=== PATIENT | female | born 1950 | race Caucasian/White ===

== ENCOUNTER 2017-06-05 09:04 | Day surgery (SDC) | payer MEDICARE, OTHER ==
--- NOTE | 2017-06-05 07:39 | HP ---
DATE OF SURGERY: 06/05/2017 HISTORY OF PRESENT ILLNESS: The patient is a 67 year-old with last colonoscopy in 2013 and had tubular adenoma and is in need of follow up screening colonoscopy. She denies any pain. She denies any bloody stools. She had some small bowel movements. PAST MEDICAL HISTORY: She denies any chronic illnesses. PAST SURGICAL HISTORY: Back surgery in the past. Colonoscopy in the past. 0 MEDICATIONS: Includes multivitamins, Lyrica, potassium chloride, metaxalone, duloxetine, ropinirole, methylphenidate, vitamin B12, vitamin C. ALLERGIES: NKDA. FAMILY HISTORY: Sister had colon cancer. Hypertension. SOCIAL HISTORY: No smoking. Occasional alcohol use. REVIEW OF SYSTEMS: Twelve systems reviewed per admission assessment. No chest pain or palpitations other systems negative or noncontributory as above and per preadmission questionnaire. PHYSICAL EXAMINATION: GENERAL: No acute distress. HEENT: Sclerae nonicteric. NECK: No JVD. CHEST: Equal excursion, nonlabored breathing. CVS: Regular rate and rhythm. ABDOMEN: Soft. No peritoneal signs. EXTREMITIES: No significant edema. NEURO: Alert, oriented, moving extremities symmetrically. No gross motor deficits noted. IMPRESSION: History of polyps, need for follow up screening colonoscopy. I feel she is a candidate. Shown the risk sheet and explained the procedure in detail but not limited to bleeding or infection, small risk of bowel injury or perforation possibly requiring open procedure, small risk of missed or nondiagnosis or incomplete exam possibly requiring barium enema, other studies or procedures, general risk of anesthesia or sedation, risk of bowel prep, but not limited to. She understands and agrees to the planned procedure and will proceed with outpatient follow up screening colonoscopy under MAC anesthesia.
[~2017-06-05 09:04] MED LIST: Lactated Ringers 1,000 ML IV ONE; Lactated Ringers 1,000 ML IV SCH
[2017-06-05] MEDS ORDERED: DIPRIVAN 200 MG/20 ML IV ONE (09:05)
[2017-06-05] MEDS ORDERED: Robinul 0.4 MG/2 ML IV ONE (09:05)
[2017-06-05] MEDS ORDERED: Ketamine HCl 50 MG/ML IJ ONE (09:05)
[2017-06-05 11:52] VITALS: PULSE 75; O2SAT 100
[2017-06-05 11:58] VITALS: BP 167/91
--- NOTE | 2017-06-06 08:58 | OP ---
SURGERY DATE/TIME: 06/05/2017 1040 PREOPERATIVE DIAGNOSIS: History of polyps, need for screening colonoscopy. POSTOPERATIVE DIAGNOSES: 1) Somewhat poor prep limiting colon exam. 2) Tortuous colon. 3) Small ascending colon polyp. 4) Small internal and external hemorrhoids. PROCEDURES: Colonoscopy to cecum, cold biopsy with piecemeal polypectomy for small ascending colon polyp. SURGEON: Dr. Willis Cruz. ANESTHESIA: MAC. ESTIMATED BLOOD LOSS: Minimal. INDICATIONS: As noted above. Risks and benefits explained in detail but not limited to and consent obtained. DESCRIPTION OF PROCEDURE AND FINDINGS: The patient is taken to the operating room. MAC anesthesia introduced. After official time out and no disagreement with planned procedure. Digital rectal exam did not reveal any rectal masses. She did have some small internal and external hemorrhoids. Video colonoscope inserted and passed up the tortuous sigmoid, descending and transverse colon. With external pressure it took some time navigating through this very tortuous colon but with aid of MAC anesthesia the scope was able to be passed around the ascending colon to cecum. Appendiceal orifice and valve were visualized. Prep was poor with some liquidy semi-solid stool limiting the exam for small lesions. This was suction irrigated as well as possible but did limit the exam for small lesions. The scope slowly and carefully withdrawn. There was a small 2.5 mm polyp in the proximal ascending colon removed in piecemeal fashion with hot biopsy forceps and brief bursts of cautery. Good hemostasis noted. The scope was slowly and carefully withdrawn through the terminal ileum and showed some diverticulosis. There were no signs of any large polyps, masses or obstructing lesions but some small internal and external hemorrhoids in the rectum. Otherwise again no signs of any large polyps, masses or obstructing lesions. The scope is withdrawn. The patient tolerated the procedure well. There were no immediate complications. Should this polyp be benign I recommend follow up colonoscopy in three years given the polyp and the quality of the prep. I discussed the findings with the family out in the waiting room.
== END 2017-06-05 11:55 | disposition home or self-care (01) ==
LOC: SDC 09:04
PROVIDERS: ATTEND Surgery
PROC: 0DBK8ZX Excision of Ascending Colon, Via Natural or Artificial Opening Endoscopic, Diagnostic (ICD-10-PCS; principal; 2017-06-05)
DX: Z86.010 Personal history of colon polyps (principal); K63.5 Polyp of colon; K64.4 Residual hemorrhoidal skin tags; K64.8 Other hemorrhoids; Z12.11 Encounter for screening for malignant neoplasm of colon
CPT/HCPCS: 00812; 88305; J2704

== ENCOUNTER 2021-04-11 06:24 | Emergency (ER) | payer MEDICARE, OTHER ==
[2021-04-11] MEDS ORDERED: solu-MEDROL 125 MG, Sterile H2O 10 ml 2 ML IV ONE ×2 (07:31)
--- NOTE | 2021-04-11 07:31 | ERPHSYRPT ---
- History of Present Illness Time Seen by Provider: 04/11/21 07:10 Source: patient, EMS Exam Limitations: no limitations Patient Subjective Stated Complaint: pt states "I'm so weak." Triage Nursing Assessment: pt came into the er via ambulance; pt is axo x4; c/o weakness/ not feeling; pt states that she is positive for covid; pt states that she was positive on 04/06/21; pt states that she was unable to get out of bed this morning due to weakness; pt denies cough, SOB; pt denies vomiting; c/o N/D; clear lung sounds in all lobes; active bowel sounds in all quads; pt states last BM was today; pt states lost of taste and smell; pt states decreased appetite; hypertensive Physician History: This is a 71-year-old white female who has a history of peripheral neuropathy, COPD, fibromyalgia and has had a week of symptoms including cough, muscle aches and pains, low-grade fevers, and weakness. He took a home Covid test on the Monday prior to this evaluation. It was positive. Patient symptoms have not improved tremendously. Her overriding symptoms she states is weakness. She denies chest pain. She has had no nausea vomiting or diarrhea. Patient significant other also has similar symptoms and tested positive on the home Covid test as well. Timing/Duration: week(s) (1) Fever Severity: mild Fever Therapy EMPLOYMENT LEGAL ASSISTANT: none Associated Symptoms: cough, muscle aches, shortness of breath, weakness, No chest pain Allergies/Adverse Reactions: No Known Drug Allergies Allergy (Verified 04/11/21 06:33) Home Medications: Cyanocobalamin/Folic Acid [Vitamin Y58-Kfnfp Acid Tablet] 2,500 mcg PO DAILY 03/18/14 [History] Metaxalone 1 tab PO BID 03/18/14 [History] Multivitamin [Multi-Vitamin Daily] 1 each PO DAILY 03/18/14 [History] Potassium Chloride 10 Meq Tab* [Klor Con 10 MEQ] 1 tab PO DAILY 03/18/14 [History] Ascorbic Acid 500 mg [Vitamin C 500 MG] 1,000 mg PO DAILY 09/23/16 [History] Duloxetine HCl 30 mg [Cymbalta 30 MG Capsule] 60 mg PO DAILY 09/23/16 [History] Pregabalin [Lyrica] 75 mg PO BID 09/23/16 [History] Ropinirole HCl 1 mg PO HS 09/23/16 [History] Amphet Asp/Amphet/D-Amphet [Dextroamp-Amphet ER 30 mg Cap] 30 mg PO DAILY [History] Alendronate Sodium 70 mg [Fosamax 70 MG] 70 mg PO 04/11/21 [History] Celecoxib [Celebrex] 50 mg PO BID 04/11/21 [History] Docusate Sodium [Stool Softener] 250 mg PO UD 04/11/21 [History] Hx Tetanus, Diphtheria Vaccination/Date Given: No Hx Influenza Vaccination/Date Given: No Hx Pneumococcal Vaccination/Date Given: No Travel Risk - International Travel Have you traveled outside of the country in past 3 weeks: No - Coronavirus Screening Are you exhibiting any of the following symptoms?: Yes Symptoms: Vomiting/Diarrhea, Loss of Taste or Smell, Headaches/Body Aches/Fatigu e Close contact with a COVID-19 positive Pt in past 14-21 Days: Yes - Vaccine Status Have you recieved a Covid-19 vaccination: No - Review of Systems Constitutional: Fever, Weakness Eyes: No Symptoms Ears, Nose, & Throat: No Symptoms Respiratory: Cough, Dyspnea Cardiac: No Symptoms Abdominal/Gastrointestinal: No Symptoms Genitourinary Symptoms: No Symptoms Musculoskeletal: No Symptoms Skin: No Symptoms Neurological: No Symptoms Psychological: No Symptoms Endocrine: No Symptoms Hematologic/Lymphatic: No Symptoms Immunological/Allergic: No Symptoms All Other Systems: Reviewed and Negative - Past Medical History Pertinent Past Medical History: Yes Neurological History: Peripheral Neuropathy ENT History: No Pertinent History Cardiac History: No Pertinent History Respiratory History: COPD Endocrine Medical History: Hypothyroidism Musculoskeletal History: Arthritis, Fibromyalgia, Osteoarthritis GI Medical History: No Pertinent History History: No Pertinent History Psycho-Social History: No Pertinent History Female Reproductive Disorders: No Pertinent History Other Medical History: copd does not need treatment at this time, restless legs, pt states no thyroid problems - Past Surgical History Past Surgical History: Yes Neuro Surgical History: No Pertinent History Cardiac: No Pertinent History Respiratory: No Pertinent History Gastrointestinal: No Pertinent History Genitourinary: No Pertinent History Musculoskeletal: Other Female Surgical History: No Pertinent History Other Surgical History: back surgery 10/26/16 on L4 & L5, colonoscopy 2013 - Social History Smoking Status: Never smoker Exposure to second hand smoke: No Drug Use: none Patient Lives Alone: No - Female History Hx Now: No - Nursing Vital Signs Nursing Vital Signs: Initial Vital Signs Temperature 98.3 F 04/11/21 06:33 Pulse Rate 76 04/11/21 06:33 Respiratory Rate 14 04/11/21 06:33 Blood Pressure 166/86 04/11/21 06:33 O2 Sat by Pulse Oximetry 98 04/11/21 06:33 Pain Scale Pain Intensity 0 - Physical Exam General Appearance: mild distress, alert, anxiety Eye Exam: PERRL/EOMI, eyes nml inspection ENT Exam: normal ENT inspection Neck Exam: normal inspection, non-tender, supple, full range of motion, trachea midline Respiratory Exam: normal breath sounds, chest non-tender, lungs clear, no respiratory distress, no accessory muscle use Cardiovascular/Chest Exam: normal heart sounds, regular rate/rhythm, normal peripheral pulses Gastrointestinal/Abdominal Exam: soft, non tender Pelvic Exam: not done Rectal Exam: not done Extremity Exam: non-tender, normal range of motion, normal inspection Neurologic Exam: alert, oriented x 3, cooperative, electrotype caster II-XII nml as tested, normal mood/affect, nml cerebellar function, nml station & gait, sensation nml Skin Exam: normal color, warm, dry Lymphatic: No adenopathy SpO2 Interpretation: normal SpO2: 98 O2 Delivery: Room Air - Course Nursing assessment & vital signs reviewed: Yes EKG Interpreted by Me: RATE (73), Sinus Rhythm, NORMAL AXIS, NORMAL INTERVALS, NORMAL QRS, NORMAL ST-T, Other (No acute ischemic changes on today's EKG. There are no changes on today's EKG when compared to EKG dated 03/08/2016) Ordered Tests: Active Orders 24 hr Category Date Time Status Information Systems Coordinator STAT Care 04/11/21 07:33 Active EKG-ER Only STAT Care 04/11/21 07:31 Active IV Insertion STAT Care 04/11/21 07:31 Active Isolation, Initiate & Maintain STAT Care 04/11/21 07:32 Active CHEST 1 VIEW (PORTABLE) Stat Exams 04/11/21 07:32 Completed BLOOD CULTURE Stat Lab 04/11/21 08:00 Ordered CBC W DIFF Stat Lab 04/11/21 07:31 Completed CMP Stat Lab 04/11/21 07:30 Completed CULTURE,URINE Stat Lab 04/11/21 09:16 Received D-DIMER QUANTITATIVE Stat Lab 04/11/21 07:30 Completed Ferritin Stat Lab 04/11/21 07:30 Completed INFLUENZA A+B ERINN Stat Lab 04/11/21 08:00 Completed LDH-LACTATE DEHYDROGENASE Stat Lab 04/11/21 07:30 Completed Lactic Acid Stat Lab 04/11/21 07:31 Completed NT PRO BNP Stat Lab 04/11/21 07:30 Completed TROPONIN Q3H Lab 04/11/21 07:30 Completed TROPONIN Q3H Lab 04/11/21 10:45 Ordered TROPONIN Q3H Lab 04/11/21 13:45 Ordered TROPONIN Q3H Lab 04/11/21 16:45 Ordered TROPONIN Q3H Lab 04/11/21 19:45 Ordered UA W/RFX UR CULTURE Stat Lab 04/11/21 09:16 Completed Medication Summary Generic Name Dose Route Start Last Admin Trade Name Freq PRN Reason Stop Dose Admin Sodium Chloride 1,000 mls @ 100 mls/hr 04/11/21 07:45 04/11/21 07:38 Sodium Chloride 0.9% 1000 Ml IV 05/11/21 07:44 100 mls/hr .Q10H CARLEY Administration Ceftriaxone Sodium/Dextrose 1 g in 50 mls @ 100 mls/hr 04/11/21 09:49 04/11/21 09:56 Rocephin 1 Gm-D5w 50 Ml Bag IV 04/11/21 10:18 100 mls/hr STAT STA 100 mls/hr Administration Discontinued Medications Generic Name Dose Route Start Last Admin Trade Name Freq PRN Reason Stop Dose Admin Hydrocodone Bitart/Acetaminophen 10 ml 04/11/21 07:34 04/11/21 07:39 Hydrocodone/Acetaminophen 5 Ml Udcup PO 04/11/21 07:35 10 ml STAT STA Administration Hydrocodone Bitart/Acetaminophen Confirm 04/11/21 07:37 Hydrocodone/Acetaminophen 5 Ml Udcup Administered 04/11/21 07:38 Dose 10 ml .ROUTE .STK-MED ONE Methylprednisolone Sodium 0 mg 04/11/21 07:31 04/11/21 07:38 Succinate 125 mg/ Sterile IV 04/11/21 07:32 125 mg Water 2 ml STAT ONE Administration Ceftriaxone Sodium/Dextrose Confirm 04/11/21 09:52 Rocephin 1 Gm-D5w 50 Ml Bag Administered 04/11/21 09:53 Dose 1 g in 50 mls @ ud IV .STK-MED ONE Methylprednisolone Sodium Succinate Confirm 04/11/21 07:37 Methylprednis Sod Succ 125 Mg/2 Ml Vial Administered 04/11/21 07:38 Dose 125 mg .ROUTE .STK-MED ONE Sterile Water Confirm 04/11/21 07:37 Water For Injection,Sterile 10 Ml Vial Administered 04/11/21 07:38 Dose 10 ml IJ .STK-MED ONE Lab/Rad Data: Laboratory Result Diagrams 04/11/21 07:31 04/11/21 07:30 Laboratory Results 04/11/21 04/11/21 04/11/21 Range/Units 09:16 08:00 08:00 WBC (4.0-10.5) K/mm3 RBC (4.1-5.4) M/mm3 Hgb (12.0-16.0) gm/dl Hct (35-47) % MCV (78-100) fl MCH (26-32) pg MCHC (32-36) g/dl RDW (11.5-14.0) % Plt Count (150-450) K/mm3 MPV (7.5-11.0) fl Gran % (36.0-66.0) % Eos # (Auto) (0-0.5) Absolute Lymphs (auto) (1.0-4.6) Absolute Monos (auto) (0.0-1.3) Lymphocytes % (24.0-44.0) % Monocytes % (0.0-12.0) % Eosinophils % (0.00-5.0) % Basophils % (0.0-0.4) % Absolute Granulocytes (1.4-6.9) Basophils # (0-0.4) D-Dimer (215-500) ng/mL Sodium (137-145) mmol/L Potassium (3.5-5.1) mmol/L Chloride (98-107) mmol/L Carbon Dioxide (22-30) mmol/L Anion Gap (5-15) MEQ/L BUN (7-17) mg/dL Creatinine (0.52-1.04) mg/dL Estimated GFR ML/MIN Glucose (74-106) mg/dL Lactic Acid (0.4-2.0) Calcium (8.4-10.2) mg/dL Ferritin (11.1-264) ng/mL Total Bilirubin (0.2-1.3) mg/dL AST (14-36) U/L ALT (0-35) U/L Alkaline Phosphatase (38-126) U/L Lactate Dehydrogenase (120-246) U/L Troponin I (0.000-0.034) ng/mL NT-Pro-B Natriuret Pep (0-900) pg/mL Serum Total Protein (6.3-8.2) g/dL Albumin (3.5-5.0) g/dL Urine Color KANE (YELLOW) Urine Appearance SLIGHTLY CLOUDY (CLEAR) Urine pH 6.0 (5-6) Ur Specific [place] 1.018 (1.005-1.025) Urine Protein 30 (Negative) Urine Ketones MODERATE (NEGATIVE) Urine Blood NEGATIVE (0-5) Phong/ul Urine Nitrite POSITIVE (NEGATIVE) Urine Bilirubin NEGATIVE (NEGATIVE) Urine Urobilinogen NEGATIVE (0-1) mg/dL Ur Leukocyte Esterase NEGATIVE (NEGATIVE) Urine WBC (Auto) 16-25 (0-5) /HPF Urine RBC (Auto) 3-5 (0-2) /HPF U Epithel Cells (Auto) RARE (FEW) /HPF Urine Bacteria (Auto) MANY (NEGATIVE) /HPF Urine Mucus (Auto) SLIGHT (NEGATIVE) /HPF Urine Culture Reflexed YES (NO) Urine Glucose NEGATIVE (NEGATIVE) mg/dL Influenza Type A Ag NEGATIVE (NEGATIVE) Influenza Type B Ag NEGATIVE (NEGATIVE) Group A Strep Antibody NOT DETECTED (NEGATIVE) Slides for Path Review 04/11/21 04/11/21 04/11/21 Range/Units 07:31 07:31 07:30 WBC 2.2 L (4.0-10.5) K/mm3 RBC 5.44 H (4.1-5.4) M/mm3 Hgb 14.9 (12.0-16.0) gm/dl Hct 46.3 (35-47) % MCV 85.1 (78-100) fl MCH 27.4 (26-32) pg MCHC 32.2 (32-36) g/dl RDW 13.7 (11.5-14.0) % Plt Count 124 L (150-450) K/mm3 MPV 11.6 H (7.5-11.0) fl Gran % 44.9 (36.0-66.0) % Eos # (Auto) 0 (0-0.5) Absolute Lymphs (auto) 0.75 L (1.0-4.6) Absolute Monos (auto) 0.43 (0.0-1.3) Lymphocytes % 34.7 (24.0-44.0) % Monocytes % 19.9 H (0.0-12.0) % Eosinophils % 0.0 (0.00-5.0) % Basophils % 0.5 (0.0-0.4) % Absolute Granulocytes 0.97 L (1.4-6.9) Basophils # 0.01 (0-0.4) D-Dimer (215-500) ng/mL Sodium (137-145) mmol/L Potassium (3.5-5.1) mmol/L Chloride (98-107) mmol/L Carbon Dioxide (22-30) mmol/L Anion Gap (5-15) MEQ/L BUN (7-17) mg/dL Creatinine (0.52-1.04) mg/dL Estimated GFR ML/MIN Glucose (74-106) mg/dL Lactic Acid 1.0 (0.4-2.0) Calcium (8.4-10.2) mg/dL Ferritin 424 H (11.1-264) ng/mL Total Bilirubin (0.2-1.3) mg/dL AST (14-36) U/L ALT (0-35) U/L Alkaline Phosphatase (38-126) U/L Lactate Dehydrogenase (120-246) U/L Troponin I (0.000-0.034) ng/mL NT-Pro-B Natriuret Pep (0-900) pg/mL Serum Total Protein (6.3-8.2) g/dL Albumin (3.5-5.0) g/dL Urine Color (YELLOW) Urine Appearance (CLEAR) Urine pH (5-6) Ur Specific [place] (1.005-1.025) Urine Protein (Negative) Urine Ketones (NEGATIVE) Urine Blood (0-5) Phong/ul Urine Nitrite (NEGATIVE) Urine Bilirubin (NEGATIVE) Urine Urobilinogen (0-1) mg/dL Ur Leukocyte Esterase (NEGATIVE) Urine WBC (Auto) (0-5) /HPF Urine RBC (Auto) (0-2) /HPF U Epithel Cells (Auto) (FEW) /HPF Urine Bacteria (Auto) (NEGATIVE) /HPF Urine Mucus (Auto) (NEGATIVE) /HPF Urine Culture Reflexed (NO) Urine Glucose (NEGATIVE) mg/dL Influenza Type A Ag (NEGATIVE) Influenza Type B Ag (NEGATIVE) Group A Strep Antibody (NEGATIVE) Slides for Path Review YES 04/11/21 04/11/21 04/11/21 Range/Units 07:30 07:30 07:30 WBC (4.0-10.5) K/mm3 RBC (4.1-5.4) M/mm3 Hgb (12.0-16.0) gm/dl Hct (35-47) % MCV (78-100) fl MCH (26-32) pg MCHC (32-36) g/dl RDW (11.5-14.0) % Plt Count (150-450) K/mm3 MPV (7.5-11.0) fl Gran % (36.0-66.0) % Eos # (Auto) (0-0.5) Absolute Lymphs (auto) (1.0-4.6) Absolute Monos (auto) (0.0-1.3) Lymphocytes % (24.0-44.0) % Monocytes % (0.0-12.0) % Eosinophils % (0.00-5.0) % Basophils % (0.0-0.4) % Absolute Granulocytes (1.4-6.9) Basophils # (0-0.4) D-Dimer 527 H* (215-500) ng/mL Sodium 139 (137-145) mmol/L Potassium 3.8 (3.5-5.1) mmol/L Chloride 106 (98-107) mmol/L Carbon Dioxide 23 (22-30) mmol/L Anion Gap 13.6 (5-15) MEQ/L BUN 11 (7-17) mg/dL Creatinine 0.76 (0.52-1.04) mg/dL Estimated GFR > 60.0 ML/MIN Glucose 95 (74-106) mg/dL Lactic Acid (0.4-2.0) Calcium 8.5 (8.4-10.2) mg/dL Ferritin (11.1-264) ng/mL Total Bilirubin 0.40 (0.2-1.3) mg/dL AST 51 H (14-36) U/L ALT 49 H (0-35) U/L Alkaline Phosphatase 64 (38-126) U/L Lactate Dehydrogenase 225 (120-246) U/L Troponin I < 0.012 (0.000-0.034) ng/mL NT-Pro-B Natriuret Pep 53.5 (0-900) pg/mL Serum Total Protein 6.2 L (6.3-8.2) g/dL Albumin 3.8 (3.5-5.0) g/dL Urine Color (YELLOW) Urine Appearance (CLEAR) Urine pH (5-6) Ur Specific [place] (1.005-1.025) Urine Protein (Negative) Urine Ketones (NEGATIVE) Urine Blood (0-5) Phong/ul Urine Nitrite (NEGATIVE) Urine Bilirubin (NEGATIVE) Urine Urobilinogen (0-1) mg/dL Ur Leukocyte Esterase (NEGATIVE) Urine WBC (Auto) (0-5) /HPF Urine RBC (Auto) (0-2) /HPF U Epithel Cells (Auto) (FEW) /HPF Urine Bacteria (Auto) (NEGATIVE) /HPF Urine Mucus (Auto) (NEGATIVE) /HPF Urine Culture Reflexed (NO) Urine Glucose (NEGATIVE) mg/dL Influenza Type A Ag (NEGATIVE) Influenza Type B Ag (NEGATIVE) Group A Strep Antibody (NEGATIVE) Slides for Path Review - Progress Progress: improved, re-examined Progress Note: 04/11/21 10:03 Chest x-ray shows bilateral mid lower lung field groundglass opacities consis tent with COVID-19 infection. Clinically, the patient states she is feeling much better. Counseled pt/family regarding: lab results, diagnosis, need for follow-up, rad results - Departure Departure Disposition: Home Clinical Impression: UTI (urinary tract infection), Viral illness Condition: Stable Critical Care Time: No Referrals: ANDIE MASTERS MD [Primary Care Provider] - Follow up/PCP as directed Additional Instructions: Drink plenty of fluids. Take your medications as prescribed. Get plenty of rest. Return to the emergency department if symptoms worsen. Prescriptions: Hydrocodone/Acetaminophen [Hydrocodone-Acetamn 7.5-325/15] 10 ml PO Q8H PRN PRN #120 ml MDD 30 ml PRN Reason: Cough Ciprofloxacin [Cipro 500 MG] 500 mg PO BID #14 tablet Prednisone 10 mg [Deltasone 10 mg] 10 mg PO TID #12 tablet
[2021-04-11] MEDS ORDERED: HYDROCODONE-ACETAMIN 2.5-108/5 ML SOLUTION PO STA (07:34)
[2021-04-11] MEDS ORDERED: Sodium Chloride 0.9% 1000 ML 1,000 ML ONE (07:37)
[2021-04-11] MEDS ORDERED: solu-MEDROL ONE (07:37)
[2021-04-11] MEDS ORDERED: HYDROCODONE-ACETAMIN 2.5-108/5 ML SOLUTION ONE (07:37)
[2021-04-11] MEDS ORDERED: Sterile H2O 10 ml IJ ONE (07:37)
[2021-04-11] MEDS ORDERED: Sodium Chloride 0.9% 1000 ML 1,000 ML IV SCH (07:45)
[2021-04-11 08:06] LABS: Absolute Neutrophil Ct (ANC) 0.97 (1.4-6.9); BASOPHIL % 0.5 % (0.0-0.4); Basophil (Absolute #) 0.01 (0-0.4); Eosinophil (Absolute #) 0 (0-0.5); Hematocrit 46.3 % (35-47); Hemoglobin 14.9 gm/dl (12.0-16.0); Lymphocyte (Absolute #) 0.75 (1.0-4.6); Lymphocytes % 34.7 % (24.0-44.0); Mean Cell Volume 85.1 fl (78-100); Mean Corpuscular Hemoglobin 27.4 pg (26-32); Mean Corpuscular Hgb Concent. 32.2 g/dl (32-36); Mean Platelet Volume 11.6 fl (7.5-11.0); Monocyte (Absolute #) 0.43 (0.0-1.3); Monocytes % 19.9 % (0.0-12.0); Neutrophil % 44.9 % (36.0-66.0); Platelet Count 124 K/mm3 (150-450); Red Blood Count 5.44 M/mm3 (4.1-5.4); Red Cell Distribution Width 13.7 % (11.5-14.0); White Blood Count 2.2 K/mm3 (4.0-10.5)
--- NOTE | 2021-04-11 08:14 | XRAY ---
Indication: Fever and cough. Suspect Covid 19. Comparison: None Portable apical lordotic chest hyperinflated with subtle bilateral mid to lower lung patchy interstitial alveolar opacities. Heart not enlarged with incidental tortuous descending aorta. Bony thorax intact with osteopenia and mild degenerative changes.
[2021-04-11 08:29] LABS: ALBUMIN 3.8 g/dL (3.5-5.0); ALKALINE PHOSPHATASE 64 U/L (38-126); ANION GAP 13.6 MEQ/L (5-15); BLOOD UREA NITROGEN 11 mg/dL (7-17); CHLORIDE 106 mmol/L (98-107); Calcium 8.5 mg/dL (8.4-10.2); Carbon Dioxide 23 mmol/L (22-30); Creatinine 1 0.76 mg/dL (0.52-1.04); EST GLOMERULAR FILTRATION RATE > 60.0 ML/MIN; Glucose 95 mg/dL (74-106); LDH-LACTATE DEHYDROGENASE 225 U/L (120-246); NT PRO BNP 53.5 pg/mL (0-900); Potassium 3.8 mmol/L (3.5-5.1); SGOT/AST 51 U/L (14-36); SGPT/ALT 49 U/L (0-35); SODIUM 139 mmol/L (137-145); Total Protein 6.2 g/dL (6.3-8.2)
[2021-04-11 08:44] LABS: INFLUENZA A NEGATIVE (NEGATIVE); INFLUENZA B NEGATIVE (NEGATIVE)
[2021-04-11 09:09] LABS: Slide Review 1 YES
[2021-04-11 09:39] LABS: Appearance SLIGHTLY CLOUDY (CLEAR); Bacteria MANY /HPF (NEGATIVE); Bilirubin NEGATIVE (NEGATIVE); Blood NEGATIVE Ery/ul (0-5); Glucose NEGATIVE (NEGATIVE); Ketones MODERATE (NEGATIVE); Leukocyte Esterase NEGATIVE (NEGATIVE); Mucus SLIGHT /HPF (NEGATIVE); Nitrite POSITIVE (NEGATIVE); Protein,Urine Dip 30 (Negative); Specific Gravity 1.018 (1.005-1.025); Urobilinogen NEGATIVE mg/dL (0-1)
[2021-04-11 09:40] LABS: Epithelial Cells RARE /HPF (FEW)
[2021-04-11] MEDS ORDERED: ROCEPHIN 1 Gm-D5w 50 ml Bag** 1 G/50 ML IVPB IV STA (09:49)
[2021-04-11] MEDS ORDERED: ROCEPHIN 1 Gm-D5w 50 ml Bag** 1 G/50 ML IVPB IV ONE (09:52)
[2021-04-11 10:38] VITALS: BP 137/74; PULSE 76; O2SAT 95
== END 2021-04-11 11:10 | disposition home or self-care (01) ==
LOC: ED 06:24
DX: N39.0 Urinary tract infection, site not specified (principal); B34.9 Viral infection, unspecified; M79.10 Myalgia, unspecified site; R06.02 Shortness of breath; R53.1 Weakness; R50.9 Fever, unspecified; J44.9 Chronic obstructive pulmonary disease, unspecified; Z79.891 Long term (current) use of opiate analgesic
CPT/HCPCS: 36415; 71045; 80053; 81001; 82728; 83605; 83615; 83880; 84484; 85025; 85379; 86308; 87040; 87086; 87400; 87651; 93005; 93041; 96360; 96365; 96374; 99285; U0003; 87077; 87186; J0696; J2930; A9270-GY

== ENCOUNTER 2022-08-30 16:16 | Emergency (ER) | payer MEDICARE, OTHER ==
--- NOTE | 2022-08-30 17:13 | XRAY ---
Indication: Pain following fall. Comparison: May 22, 2018 3 portable views left knee demonstrates new mildly displaced comminuted patella fracture with hemarthrosis. Stable minimal medial joint space narrowing and minimal scattered vascular calcifications.
--- NOTE | 2022-08-30 17:23 | ERPHSYRPT ---
- History of Present Illness Source: patient, other (Daughter) Exam Limitations: no limitations Patient Subjective Stated Complaint: PT states "I was at the dr office with my and I fell and my knee popped a bunch." Triage Nursing Assessment: Pt presented alert and oriented X 3, skin pwd. PT ambulates with assistance of 1. PT left knee slightly deformed, swollen and tender. CSM X 4 Physician History: 72 yo WF fell while going into a doctor's office in [place]. She was taking her . Pt complains of L knee pain. Pain is moderate to severe and worse w weight bearing. She denies head injury/LOC/C,T, or L-spine pain/chest pain /abdominal pain/UE pain/Hip pain. Method of Injury: fell Occurred: other (14:00 today) Quality: constant Severity of Pain-Max: severe Severity of Pain-Current: moderate Lower Extremities Pain: knee: left Modifying Factors: Improves With: movement Associated Symptoms: unable to bear weight Allergies/Adverse Reactions: No Known Drug Allergies Allergy (Verified 04/11/21 06:33) Home Medications: Cyanocobalamin/Folic Acid [Vitamin X88-Xlmws Acid Tablet] 2,500 mcg PO DAILY 03/18/14 [History] Metaxalone 1 tab PO BID 03/18/14 [History] Multivitamin [Multi-Vitamin Daily] 1 each PO DAILY 03/18/14 [History] Potassium Chloride Tab* [Klor Con] 1 tab PO DAILY 03/18/14 [History] Ascorbic Acid 500 mg [Vitamin C 500 MG] 1,000 mg PO DAILY 09/23/16 [History] Duloxetine HCl 30 mg [Cymbalta 30 MG Capsule] 60 mg PO DAILY 09/23/16 [History] Pregabalin [Lyrica] 75 mg PO BID 09/23/16 [History] Ropinirole HCl 1 mg PO HS 09/23/16 [History] Dextroamphetamine/Amphetamine [Dextroamp-Amphet ER 30 mg Cap] 30 mg PO DAILY 05/16/19 [History] Celecoxib [Celebrex] 50 mg PO BID 04/11/21 [History] Docusate Sodium [Stool Softener] 250 mg PO UD 04/11/21 [History] Hx Tetanus, Diphtheria Vaccination/Date Given: No Hx Influenza Vaccination/Date Given: No Hx Pneumococcal Vaccination/Date Given: No Travel Risk - International Travel Have you traveled outside of the country in past 3 weeks: No - Coronavirus Screening Are you exhibiting any of the following symptoms?: No Close contact with a COVID-19 positive Pt in past 14-21 Days: No - Vaccine Status Have you recieved a Covid-19 vaccination: No - Review of Systems Constitutional: No Symptoms Eyes: No Symptoms Ears, Nose, & Throat: No Symptoms Respiratory: No Symptoms Cardiac: No Symptoms Abdominal/Gastrointestinal: No Symptoms Genitourinary Symptoms: No Symptoms Skin: No Symptoms Neurological: No Symptoms Psychological: No Symptoms Endocrine: No Symptoms Hematologic/Lymphatic: No Symptoms Immunological/Allergic: No Symptoms - Past Medical History Pertinent Past Medical History: Yes Neurological History: Peripheral Neuropathy ENT History: No Pertinent History Cardiac History: No Pertinent History Respiratory History: COPD Endocrine Medical History: Hyperthyroidism Musculoskeletal History: Arthritis, Fibromyalgia, Osteoarthritis GI Medical History: No Pertinent History History: No Pertinent History Psycho-Social History: No Pertinent History Female Reproductive Disorders: No Pertinent History Other Medical History: copd does not need treatment at this time, restless legs, pt states no thyroid problems - Past Surgical History Past Surgical History: Yes Neuro Surgical History: No Pertinent History Cardiac: No Pertinent History Respiratory: No Pertinent History Gastrointestinal: No Pertinent History Genitourinary: No Pertinent History Musculoskeletal: Other Female Surgical History: No Pertinent History Other Surgical History: back surgery 03/02/16 on L4 & L5, colonoscopy 2013. bladder sling - Social History Smoking Status: Never smoker Exposure to second hand smoke: No Drug Use: none Patient Lives Alone: No - Nursing Vital Signs Nursing Vital Signs: Initial Vital Signs Temperature 97.6 F 08/30/22 16:37 Pulse Rate 77 08/30/22 16:37 Respiratory Rate 20 08/30/22 16:37 Blood Pressure 176/80 08/30/22 16:37 O2 Sat by Pulse Oximetry 96 08/30/22 16:37 Pain Scale Pain Intensity 2 Hypertensive - Physical Exam General Appearance: no apparent distress Eyes, Ears, Nose, Throat Exam: normal ENT inspection (No head injury/No otorrhea or rhinorrhea) Neck Exam: normal inspection (C-spine NTTP) Cardiovascular/Respiratory Exam: chest non-tender, normal breath sounds, regular rate/rhythm, murmur (2/6 ANJEL) Gastrointestinal/Abdominal Exam: non-tender, soft Back Exam: normal inspection, normal range of motion, No CVA tenderness, No vertebral tenderness Hips Exam: bilateral: non-tender, normal inspection, normal range of motion, no evidence of injury Legs Exam: bilateral leg: non-tender, normal inspection, normal range of motion, no evidence of injury Knees Exam: left knee: swelling (L knee edematous and TTP/Good pedal pulse, distal sensation, and capillary return) Ankle Exam: bilateral ankle: non-tender, normal inspection, normal range of motion, no evidence of injury Foot Exam: bilateral foot: non-tender, normal inspection, normal range of motion, no evidence of injury Neuro/Tendon Exam: normal sensation, normal motor functions, normal tendon functions, responds to pain, no evidence tendon injury, No motor deficit, No sensory deficit Mental Status Exam: alert, oriented x 3, cooperative Skin Exam: normal color, warm, dry SpO2 Interpretation: normal SpO2: 96 O2 Delivery: Room Air - Course Nursing assessment & vital signs reviewed: Yes - Radiology Exams Knee X-ray Interpretation: Discussed w/ radiologist (L comminuted patellar fx) Ordered Tests: Active Orders 24 hr Category Date Time Status Crutches STAT Care 08/30/22 17:18 Completed Splint STAT Care 08/30/22 17:17 Completed KNEE (3 VIEWS) Stat Exams 08/30/22 16:47 Completed - Progress Progress: improved Progress Note: 08/30/22 18:57 Nursing note and vital signs reviewed No food or housing insecurities noted XR result reviewed and shared w pt/daughter Additional history per daughter Pt refused all pain meds Knee immobilizer per nursing/NVI Pt refused crutches and will use wheelchair she has at home Counseled pt/family regarding: diagnosis, need for follow-up, rad results Medical Desision Making - Diagnostic Testing Radiological Interpretation: Reviewed by me, Discussed w/ radiologist - Risk of complications Low Risk: Low risk of morbidity from additional dx testing or treatment - Departure Departure Disposition: Home Clinical Impression: Patellar fracture Condition: Stable Critical Care Time: No Referrals: BIJU GARCIA MD [Primary Care Provider] - Follow up/PCP as directed Instructions: Patella Fracture (DC), Knee Pain (DC) Additional Instructions: Follow up w Ortho clinic in the morning(8-10AM) Ice for 12-24 hours No weight bearing Pain meds as needed(Use a stool softener) Prescriptions: Hydrocodone/Acetaminophen [Hydrocodone-Acetamin 10-325 mg] 0.5 each PO Q4-6HPRN PRN #10 tablet MDD 4 tabs PRN Reason: Pain
[2022-08-30 17:26] VITALS: BP 170/76; PULSE 68
[2022-08-30 17:32] VITALS: O2SAT 96
== END 2022-08-30 17:43 | disposition home or self-care (01) ==
LOC: ED 16:16
DX: S82.042A Displaced comminuted fracture of left patella, initial encounter for closed fracture (principal); W19.XXXA Unspecified fall, initial encounter; Y92.531 Health care provider office as the place of occurrence of the external cause; Z79.899 Other long term (current) drug therapy
CPT/HCPCS: 73562; 99283; L1830

== ENCOUNTER 2023-11-27 16:15 | Emergency (ER) | payer MEDICARE, OTHER ==
--- NOTE | 2023-11-27 16:16 | ERPHSYRPT ---
- History of Present Illness Time Seen by Provider: 11/27/23 16:16 Source: patient, family Exam Limitations: no limitations Physician History: This is a 73-year-old white female patient of Dr. Garcia who has chronic back problems. She has had history of back surgery in the past and has hardware in place. She has known disc bulges in the primary area and range of her disease processes in the L4-L5 region. Patient went to see her primary care provider today and her back was not feeling too bad. However, she does do a lot of lifting and twisting and turning to help move her who is paralyzed and she began having worsening pain as the day progressed. Last week, the patient did receive a steroid injection without much benefit at all. Patient has a history of hypertension, degenerative disc disease, fibromyalgia, hypothyroidism, peripheral neuropathy, arrhythmia, and COPD. She denies chest pain. She denies shortness of breath and she has no abdominal pain. Timing/Duration: today Method of Injury: lifting, twisted, turning Quality: sharp Back Pain Location: lumbar spine Back Pain Radiation: buttocks Severity of Pain-Max: moderate (Lateral) Severity of Pain-Current: moderate Modifying Factors: Improves With: movement Associated Symptoms: lower back pain, muscle spasms, No denies symptoms, No urinary incontinence, No problems urinating, No numbness in legs/feet, No tingling in legs/feet Previous symptoms: same symptoms as today, no recent treatment Allergies/Adverse Reactions: No Known Drug Allergies Allergy (Verified 11/27/23 16:29) Home Medications: Cyanocobalamin/Folic Acid [Vitamin R26-Fpwbf Acid Tablet] 2,500 mcg PO WEEKLY 03/18/14 [History] Metaxalone 1 tab PO BID 03/18/14 [History] Duloxetine HCl 30 mg [Cymbalta 30 MG Capsule] 60 mg PO DAILY 09/23/16 [History] Pregabalin [Lyrica] 75 mg PO BID 09/23/16 [History] Ropinirole HCl 1 mg PO HS 09/23/16 [History] Docusate Sodium [Stool Softener] 250 mg PO DAILY 04/11/21 [History] Celecoxib 100 mg [celeBREX 100 MG] 100 mg PO DAILY 11/27/23 [History] Dextroamphetamine/Amphetamine [Adderall Xr 10 mg Capsule] 10 mg PO DAILY 11/27/23 [History] Glycopyrrolate 1 mg PO BID 11/27/23 [History] Hydroxychloroquine Sulfate [Plaquenil] 200 mg PO DAILY 11/27/23 [History] Metoprolol Succinate 25 mg Xl* [Toprol-Xl 25MG Tablets] 25 mg PO DAILY 11/27/23 [History] Umeclidinium Brm/Vilanterol Tr [Anoro Ellipta 62.5-25 Mcg INH] 1 puff PO DAILY 11/27/23 [History] Hx Tetanus, Diphtheria Vaccination/Date Given: No Hx Influenza Vaccination/Date Given: No Hx Pneumococcal Vaccination/Date Given: No Travel Risk - International Travel Have you traveled outside of the country in past 3 weeks: No - Emerging Infectious Disease Are you exhibiting symptoms associated with any current EIDs: No - Review of Systems Constitutional: No Symptoms Eyes: No Symptoms Ears, Nose, & Throat: No Symptoms Respiratory: No Symptoms Cardiac: No Symptoms Abdominal/Gastrointestinal: No Symptoms Genitourinary Symptoms: No Symptoms Musculoskeletal: Back Pain Skin: No Symptoms Neurological: No Symptoms Psychological: No Symptoms Endocrine: No Symptoms Hematologic/Lymphatic: No Symptoms Immunological/Allergic: No Symptoms All Other Systems: Reviewed and Negative - Past Medical History Pertinent Past Medical History: Yes Neurological History: Peripheral Neuropathy ENT History: No Pertinent History Cardiac History: Arrhythmia Respiratory History: COPD Endocrine Medical History: Hyperthyroidism Musculoskeletal History: Arthritis, Degenerative Disk Disease, Fibromyalgia, Osteoarthritis GI Medical History: No Pertinent History History: No Pertinent History Psycho-Social History: No Pertinent History Female Reproductive Disorders: No Pertinent History Other Medical History: HX OF BACK SURGERY (NOT SURE WHAT WAS DONE) 2016 L4/L5. HX OF BLADDER SLING SURGERY - Past Surgical History Past Surgical History: Yes Neuro Surgical History: No Pertinent History Cardiac: No Pertinent History Respiratory: No Pertinent History Gastrointestinal: No Pertinent History Genitourinary: No Pertinent History Musculoskeletal: Other Female Surgical History: No Pertinent History Other Surgical History: back surgery 03/02/16 on L4 & L5, colonoscopy 2013. bladder sling - Social History Smoking Status: Never smoker Exposure to second hand smoke: No Drug Use: none Patient Lives Alone: No - Nursing Vital Signs Nursing Vital Signs: Initial Vital Signs Temperature 97.0 F 11/27/23 16:42 Pulse Rate 77 11/27/23 16:42 Respiratory Rate 18 11/27/23 16:42 Blood Pressure 143/84 11/27/23 16:42 O2 Sat by Pulse Oximetry 98 11/27/23 16:42 Pain Scale Pain Intensity [Left Back] 8 Pain Intensity 6 - Physical Exam General Appearance: no apparent distress, alert Eye Exam: PERRL/EOMI, eyes nml inspection Ears, Nose, Throat Exam: normal ENT inspection, moist mucous membranes Neck Exam: normal inspection, non-tender, supple, full range of motion Respiratory Exam: normal breath sounds, lungs clear, airway intact, No chest tenderness, No respiratory distress Gastrointestinal Exam: No tenderness Pelvic Exam: not done Rectal Exam: not done Back Exam: normal inspection, normal range of motion, vertebral tenderness (Bar level), decreased range of motion, muscle spasm, No CVA tenderness Extremity Exam: normal inspection, normal range of motion, pelvis stable Neurologic Exam: alert, oriented x 3, cooperative, 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, sensation nml Skin Exam: normal color, warm, dry Lymphatic Exam: No adenopathy SpO2 Interpretation: normal O2 Delivery: Room Air - Course Nursing assessment & vital signs reviewed: Yes Ordered Tests: Active Orders 24 hr Category Date Time Status LUMBAR SPINE W/O [CT] Stat Exams 11/27/23 16:46 Taken Medication Summary Discontinued Medications Generic Name Dose Route Start Last Admin Trade Name Heath PRN Reason Stop Dose Admin Methylprednisolone Sodium 0 mg 11/27/23 16:55 11/27/23 17:04 Succinate 125 mg/ Sterile IM 11/27/23 16:56 125 mg Water 2 ml STAT ONE Administration Hydromorphone HCl 0.5 mg 11/27/23 16:55 11/27/23 17:11 Hydromorphone 1 Mg/1ml Inj IM 11/27/23 16:56 0.5 mg STAT ONE Administration Hydromorphone HCl Confirm 11/27/23 17:09 Hydromorphone 1 Mg/1ml Inj Administered 11/27/23 17:10 Dose 1 mg .ROUTE .STK-MED ONE Methylprednisolone Sodium Succinate Confirm 11/27/23 17:00 Methylprednis Sod Succ 125 Mg/2 Ml Vial Administered 11/27/23 17:01 Dose 125 mg .ROUTE .STK-MED ONE Ondansetron HCl 4 mg 11/27/23 16:54 11/27/23 17:01 Zofran 4 Mg/Udtablet Orally Disintegrating PO 11/27/23 16:55 4 mg STAT ONE Administration Ondansetron HCl Confirm 11/27/23 17:00 Zofran 4 Mg/Udtablet Orally Disintegrating Administered 11/27/23 17:01 Dose 4 mg .ROUTE .STK-MED ONE Orphenadrine Citrate 60 mg 11/27/23 16:55 11/27/23 17:01 Orphenadrine Citrate 60 Mg/2 Ml Vial IM 11/27/23 16:56 60 mg STAT ONE Administration Orphenadrine Citrate Confirm 11/27/23 17:00 Orphenadrine Citrate 60 Mg/2 Ml Vial Administered 11/27/23 17:01 Dose 60 mg .ROUTE .STK-MED ONE Sterile Water Confirm 11/27/23 16:59 Water For Injection,Sterile 10 Ml Vial Administered 11/27/23 17:00 Dose 10 ml IJ .STK-MED ONE - Progress Progress: improved, pain not gone completely Progress Note: 11/27/23 17:12 Medical decision making and the assignment of low to moderate complexity on this patient's medical issue today is based on review of the patient's past medical history, review of the patient's medication list, history present illness and physical findings on examination. The workup in this patient includes lumbar spine CT scan. In addition we will provide the patient with intramuscular Solu- Medrol, orphenadrine and half a milligram of Dilaudid with oral Zofran 4 mg ODT. Differential diagnosis includes but is not limited to spinal fracture, acute exacerbation of chronic back pain, spinal stenosis 11/27/23 18:[address] scan of the lumbar spine was interpreted by the radiologist and I reviewed the impression. Impression states mild to moderate multilevel degenerative spondylosis. There is 8 mm L4 anterolisthesis. There is L4-L5 spinous fusion hardware. There is no mention of spinal cord compression. Counseled pt/family regarding: diagnosis, need for follow-up, rad results Medical Desision Making - Independent Historian Additional History obtained from: Family - Diagnostic Testing Diagnostic test were ordered, analyzed, and reviewed by me: Yes Radiological Interpretation: Reviewed by me, Teleradiologist Report - Risk of complications The pt has a mod risk of morbidity or mortality based on: Need for prescription drug management - Departure Departure Disposition: Home Clinical Impression: Acute exacerbation of chronic low back pain Condition: Stable Critical Care Time: No Referrals: BIJU GARCIA MD [Primary Care Provider] - Follow up/PCP as directed Additional Instructions: Take your medications as prescribed. Call your primary care provider tomorrow, 11/28/2023, to make arranges for follow-up appointment for further evaluation management. Prescriptions: Oxycodone HCl/Acetaminophen [Percocet 5-325 mg Tablet] 1 each PO Q12H PRN PRN #6 tablet MDD 2 PRN Reason: Moderate To Severe Pain Prednisone 10 mg [Deltasone 10 mg] 10 mg PO TID #12 tablet
[2023-11-27 16:42] VITALS: TEMP 97
[2023-11-27] MEDS ORDERED: Sterile H2O 10 ml IJ ONE (16:59)
[2023-11-27] MEDS ORDERED: Norflex 60 MG/2 ML ONE (17:00)
[2023-11-27] MEDS ORDERED: ZOFRAN ODT 4 MG ONE (17:00)
[2023-11-27] MEDS ORDERED: solu-MEDROL ONE (17:00)
[2023-11-27] MEDS: ZOFRAN ODT 4 MG PO ONE (17:01)
[2023-11-27] MEDS: Norflex 60 MG/2 ML IM ONE (17:01)
[2023-11-27] MEDS: solu-MEDROL 125 MG, Sterile H2O 10 ml 2 ML IM ONE (17:04)
[2023-11-27] MEDS ORDERED: Hydromorphone 1 mg/ml Injection ONE (17:09)
[2023-11-27] MEDS: Hydromorphone 1 mg/ml Injection IM ONE (17:11)
[2023-11-27 19:15] VITALS: BP 132/62; PULSE 64; RESP 17; O2SAT 100
--- NOTE | 2023-11-28 08:40 | XRAY ---
Indication: Low back pain. Multiple contiguous axial images obtained through the lumbar spine. Sagittal and coronal reformatted images obtained. Comparison: None Osseous structures demineralized. Broad-based disc bulge at L2-S1 levels. Also multilevel thoracolumbar degenerative taken disc phenomena greatest at L5-S1. L4-L5 spinal canal and bilateral foraminal stenosis due to combination of broad-based disc bulge, 8 mm L4 anterolisthesis on L5, and bilateral degenerative facet hypertrophy. Beam artifact from L4-L5 spinous process fusion hardware. Sagittal and coronal reformatted images demonstrates mild levoscoliosis centered at L2 and multilevel degenerative disc space narrowing greatest at L4-L5. 2-3 mm anterolisthesis L5 and S1. No acute compression fracture. Visualized noncontrasted soft tissues demonstrates mild aortoiliac calcifications and 1.4 cm right mid renal cortical cyst. Impression: 1. Chronic findings including osteopenia, multilevel degenerative spondylosis, grade 1 listhesis L4 on L5 on S1, L4-L5 fusion hardware, arteriosclerotic disease, and right renal cyst. 2. Remaining CT lumbar spine is negative.
== END 2023-11-27 19:05 | disposition home or self-care (01) ==
LOC: ED 16:15
DX: G89.29 Other chronic pain (principal); M54.50 Low back pain, unspecified; I10 Essential (primary) hypertension; Z79.52 Long term (current) use of systemic steroids; Z79.891 Long term (current) use of opiate analgesic; Z79.899 Other long term (current) drug therapy
CPT/HCPCS: 72131; 96372; 99284; J1170; J2360; J2919; Q0162

== ENCOUNTER 2023-12-07 08:01 | Emergency (ER) | payer MEDICARE, OTHER ==
--- NOTE | 2023-12-07 08:11 | ERPHSYRPT ---
- History of Present Illness Time Seen by Provider: 12/07/23 08:10 Source: patient, family, EMS, old records Exam Limitations: no limitations Physician History: This is a 73-year-old white female patient of Dr. Garcia who complains of suprapubic abdominal pain and back pain. She is brought into the hospital by the professor of fine art service. 2023 for same symptoms and was diagnosed with acute exacerbation of chronic back pain and was discharged to home with a prescription of Percocet and prednisone. A CT scan of the lumbar spine without contrast was performed on that date. I reviewed the results. There is mild to moderate multilevel degenerative spondylosis. There is no mention of spinal cord compression. Patient has not had a fall or traumatic injury since that visit. Patient has seen her primary care provider who continued with the Percocet and steroids. Per patient report, the symptoms did not improve on the Percocet and steroid combination. Patient has had a vaginal closure secondary to prolapsed bladder in the past. Patient has a history of chronic low back pain, hypertension, degenerative disc disease, fibromyalgia, hypothyroidism, peripheral neuropathy, arrhythmia and COPD. I do not think it is necessary to repeat her lumbar spine CAT scan study. Timing/Duration: today, worse Method of Injury: other (No recent injury) Quality: sharp Back Pain Location: lumbar spine Back Pain Radiation: buttocks, upper legs Severity of Pain-Max: moderate Modifying Factors: Improves With: movement (Worsens) Associated Symptoms: lower back pain, muscle spasms, No urinary incontinence, No loss of bowel control, No numbness in legs/feet, No tingling in legs/feet Previous symptoms: same symptoms as today, recently seen, recently treated Allergies/Adverse Reactions: No Known Drug Allergies Allergy (Verified 12/07/23 08:18) Home Medications: Cyanocobalamin/Folic Acid [Vitamin P99-Hkzxa Acid Tablet] 2,500 mcg PO WEEKLY 03/18/14 [History] Metaxalone 1 tab PO BID 03/18/14 [History] Duloxetine HCl 30 mg [Cymbalta 30 MG Capsule] 60 mg PO DAILY 09/23/16 [History] Pregabalin [Lyrica] 75 mg PO BID 09/23/16 [History] Ropinirole HCl 1 mg PO HS 09/23/16 [History] Docusate Sodium [Stool Softener] 250 mg PO DAILY 04/11/21 [History] Celecoxib 100 mg [celeBREX 100 MG] 200 mg PO DAILY 11/27/23 [History] Dextroamphetamine/Amphetamine [Adderall Xr 10 mg Capsule] 10 mg PO DAILY 11/27/23 [History] Glycopyrrolate 1 mg PO BID 11/27/23 [History] Hydroxychloroquine Sulfate [Plaquenil] 200 mg PO DAILY 11/27/23 [History] Metoprolol Succinate 25 mg Xl* [Toprol-Xl 25MG Tablets] 25 mg PO DAILY 11/27/23 [History] Umeclidinium Brm/Vilanterol Tr [Anoro Ellipta 62.5-25 Mcg INH] 1 puff PO DAILY 11/27/23 [History] Alendronate Sodium 70 mg [Fosamax 70 MG] 70 mg PO WEEKLY 12/07/23 [History] Calcium Carbonate/Vitamin D3 [Calcium 600 mg-D3 20 Mcg Cplt] 2 tab PO DAILY 05/31 [History] Doxycycline Hyclate 100 mg [Vibramycin 100 MG] 100 mg PO BID 12/07/23 [History] Hx Tetanus, Diphtheria Vaccination/Date Given: No Hx Influenza Vaccination/Date Given: No Hx Pneumococcal Vaccination/Date Given: No Travel Risk - International Travel Have you traveled outside of the country in past 3 weeks: No - Emerging Infectious Disease Are you exhibiting symptoms associated with any current EIDs: No - Review of Systems Constitutional: No Symptoms Eyes: No Symptoms Ears, Nose, & Throat: No Symptoms Respiratory: No Symptoms Cardiac: No Symptoms Abdominal/Gastrointestinal: Abdominal Pain (Suprapubic) Genitourinary Symptoms: Other (Patient actually did not have urinary retention. The problem was, because of her back pain, the patient could not get up to urinate and required catheterization by her daughter who is a nurse at home during the week) Musculoskeletal: Back Pain, No Fall, No Injury Skin: No Symptoms Neurological: No Symptoms Psychological: No Symptoms Endocrine: No Symptoms Hematologic/Lymphatic: No Symptoms Immunological/Allergic: No Symptoms All Other Systems: Reviewed and Negative - Past Medical History Pertinent Past Medical History: Yes Neurological History: Peripheral Neuropathy ENT History: No Pertinent History Cardiac History: Arrhythmia Respiratory History: COPD Endocrine Medical History: Hyperthyroidism Musculoskeletal History: Arthritis, Degenerative Disk Disease, Fibromyalgia, Osteoarthritis GI Medical History: No Pertinent History History: No Pertinent History Psycho-Social History: No Pertinent History Female Reproductive Disorders: No Pertinent History Other Medical History: HX OF BACK SURGERY (NOT SURE WHAT WAS DONE) 2016 L4/L5. HX OF BLADDER SLING SURGERY - Past Surgical History Past Surgical History: Yes Neuro Surgical History: No Pertinent History Cardiac: No Pertinent History Respiratory: No Pertinent History Gastrointestinal: No Pertinent History Genitourinary: No Pertinent History Musculoskeletal: Other Female Surgical History: No Pertinent History Other Surgical History: back surgery 03/02/16 on L4 & L5, colonoscopy 2013. bladder sling - Social History Smoking Status: Never smoker Exposure to second hand smoke: No Drug Use: none Patient Lives Alone: No - Social Determinants of Health Do you worry about a steady place to live?: No In the past 12 months,have you had to go without utilities?: No Transportation Issues: Yes Has anyone in your support network made you feel unsafe?: No Have you or anyone in your house had to go without enough: No - Nursing Vital Signs Nursing Vital Signs: Initial Vital Signs Temperature 96.7 F 12/07/23 08:03 Pulse Rate 63 12/07/23 08:03 Respiratory Rate 16 12/07/23 08:03 Blood Pressure 119/67 12/07/23 08:03 O2 Sat by Pulse Oximetry 100 12/07/23 08:03 Pain Scale Pain Intensity 4 - Physical Exam General Appearance: mild distress, alert, anxiety Eye Exam: PERRL/EOMI, eyes nml inspection Ears, Nose, Throat Exam: normal ENT inspection, moist mucous membranes Neck Exam: normal inspection, non-tender, supple, full range of motion Respiratory Exam: No chest tenderness, No respiratory distress Gastrointestinal Exam: tenderness (Suprapubic region to palpation), guarding (Suprapubic region to palpation), No rebound Pelvic Exam: not done Rectal Exam: not done Back Exam: normal inspection, vertebral tenderness, decreased range of motion, No CVA tenderness Extremity Exam: normal inspection, normal range of motion, pelvis stable Neurologic Exam: alert, oriented x 3, cooperative, production service manager II-XII nml as tested, sensation nml Skin Exam: normal color, warm, dry Lymphatic Exam: No adenopathy SpO2 Interpretation: normal O2 Delivery: Room Air - Course Nursing assessment & vital signs reviewed: Yes Ordered Tests: Active Orders 24 hr Category Date Time Status IV Insertion STAT Care 12/07/23 08:17 Active ACO SDOH Referral ONCE Cons 12/07/23 08:30 Active ABDOMEN AND PELVIS W/0 CONTRAS [CT] Stat Exams 12/07/23 08:18 Completed AMYLASE Stat Lab 12/07/23 09:07 Completed CBC W DIFF Stat Lab 12/07/23 09:07 Completed CMP Stat Lab 12/07/23 09:07 Completed LIPASE Stat Lab 12/07/23 09:07 Completed UA W/RFX UR CULTURE Stat Lab 12/07/23 08:12 Completed Medication Summary Discontinued Medications Generic Name Dose Route Start Last Admin Trade Name Freq PRN Reason Stop Dose Admin Methylprednisolone Sodium 0 mg 12/07/23 08:19 12/07/23 08:48 Succinate 125 mg/ Sterile IV 12/07/23 08:20 125 mg Water 2 ml STAT ONE Administration Hydromorphone HCl 1 mg 12/07/23 08:17 12/07/23 08:50 Hydromorphone 1 Mg/1ml Inj IV 12/07/23 08:18 1 mg STAT ONE Administration Hydromorphone HCl Confirm 12/07/23 08:43 Hydromorphone 1 Mg/1ml Inj Administered 12/07/23 08:44 Dose 1 mg .ROUTE .STK-MED ONE Methylprednisolone Sodium Succinate Confirm 12/07/23 08:43 Methylprednis Sod Succ 125 Mg/2 Ml Vial Administered 12/07/23 08:44 Dose 125 mg .ROUTE .STK-MED ONE Ondansetron HCl 4 mg 12/07/23 08:17 12/07/23 08:45 Ondansetron Hcl 4 Mg/2 Ml Vial IV 12/07/23 08:18 4 mg STAT ONE Administration Ondansetron HCl Confirm 12/07/23 08:43 Ondansetron Hcl 4 Mg/2 Ml Vial Administered 12/07/23 08:44 Dose 4 mg .ROUTE .STK-MED ONE Orphenadrine Citrate 60 mg 12/07/23 08:33 12/07/23 08:46 Orphenadrine Citrate 60 Mg/2 Ml Vial IV 12/07/23 08:34 60 mg STAT ONE Administration Orphenadrine Citrate Confirm 12/07/23 08:43 Orphenadrine Citrate 60 Mg/2 Ml Vial Administered 12/07/23 08:44 Dose 60 mg .ROUTE .STK-MED ONE Sterile Water Confirm 12/07/23 08:43 Water For Injection,Sterile 10 Ml Vial Administered 12/07/23 08:44 Dose 10 ml IJ .STK-MED ONE Lab/Rad Data: Laboratory Result Diagrams 12/07/23 09:07 12/07/23 09:07 Laboratory Results 12/07/23 12/07/23 12/07/23 Range/Units 09:07 09:07 08:12 WBC 7.2 (3.98-10.04) x10^3/uL RBC 5.38 H (3.93-5.22) x10^6/uL Hgb 15.1 (11.2-15.7) g/dL Hct 45.8 H (34.1-44.9) % MCV 85.1 (79.4-94.8) fL MCH 28.1 (25.6-32.2) pg MCHC 33.0 (32.2-35.5) g/dL RDW 12.9 (11.7-14.4) % Plt Count 372 H (182-369) x10^3/uL MPV 9.8 (9.4-12.3) fL Gran % 63.7 (34.0-71.1) % Immature Gran % (Auto) 1.5 H (0.001-0.429) % Nucleat RBC Rel Count 0.0 (0.00-0.2) % Eos # (Auto) 0.04 (0.04-0.36) x10^3/uL Immature Gran # (Auto) 0.11 H (0.001-0.031) x10^3u/L Absolute Lymphs (auto) 1.82 (1.18-3.74) x10^3/uL Absolute Monos (auto) 0.65 (0.24-0.86) x10^3/uL Absolute Nucleated RBC 0.00 (0.00-0.012) x10^3u/L Lymphocytes % 25.1 (19.3-51.7) % Monocytes % 9.0 (4.7-12.5) % Eosinophils % 0.6 L (0.7-5.8) % Basophils % 0.1 (0.1-1.2) % Absolute Granulocytes 4.61 (1.56-6.13) x10^3/uL Basophils # 0.01 (0.01-0.08) x10^3/uL Sodium 136 (135-145) mmol/L Potassium 3.5 (3.5-5.1) mmol/L Chloride 106 (98-107) mmol/L Carbon Dioxide 26 (22-30) mmol/L Anion Gap 7.4 (5-15) MEQ/L BUN 27 H (7-17) mg/dL Creatinine 0.93 (0.52-1.04) mg/dL Estimated GFR 64.1 ML/MIN Glucose 116 H (74-106) mg/dL Calcium 9.1 (8.4-10.2) mg/dL Total Bilirubin 0.40 (0.2-1.3) mg/dL AST 22 (14-36) U/L ALT 22 (0-35) U/L Alkaline Phosphatase 165 H (38-126) U/L Serum Total Protein 6.1 L (6.3-8.2) g/dL Albumin 3.5 (3.5-5.0) g/dL Amylase 105 (30-110) U/L Lipase 152 (23-300) U/L Urine Color Yellow (Yellow) Urine Appearance Clear (Clear) Urine pH 5.5 (4.6-8.0) Ur Specific Vance >=1.030 A (1.005-1.030) Urine Protein Negative (Negative) Urine Glucose (UA) Negative (Negative) mg/dL Urine Ketones Negative (Negative) Urine Blood Negative (Negative) Urine Nitrite Negative (Negative) Urine Bilirubin Negative (Negative) Urine Urobilinogen 1.0 A (0.2) mg/dL Ur Leukocyte Esterase Negative (Negative) U Hyaline Cast (Auto) NONE SEEN (0-2) /LPF Urine Microscopic RBC 3-5 (0-5) /HPF Urine Microscopic WBC 0-2 (0-5) /HPF Ur Epithelial Cells None Seen (None Seen) /HPF Urine Bacteria None Seen (None Seen) /HPF Urine Culture Reflexed NO (NO) - Progress Progress: improved, pain not gone completely Progress Note: 12/07/23 08:39 My medical decision making and the [facility] is based on review the patient's past medical history, review of patient's medication list, review patient drug allergy list, history present illness and physical findings on examination. The workup in this patient includes placement of intravenous line, infusion of intravenous Solu-Medrol, orphenadrine and Dilaudid. We also ordered a CBC, CMP, urinalysis, place a Mcmillan catheter, and perform a CT scan of the abdomen pelvis without contrast. Differential diagnosis includes but is not limited to acute exacerbation of chronic low back pain, acute intra-abdominal or intrapelvic abnormality. 12/07/23 09:32 I interpreted the patient's laboratory data results. Based on the laboratory data results, there are no acute, emergent medical issues. The CT scan of the abdomen pelvis without contrast was interpreted by the radiologist and I reviewed the impression. The impression shows a hiatal hernia, arteriosclerotic disease without abdominal aortic aneurysm, chronic bony findings and no acute findings on this noncontrast exam. 12/07/23 09:33 The combination of Dilaudid, Solu-Medrol and orphenadrine seem to help this patient. We discharged her to home on 11/27/2023 with a prescription for Percocet and prednisone. We will change her outpatient drug regimen to oral Dilaudid and orphenadrine. I realize that these 2 medications together can precipitate sedation. However, I feel that this patient's pain will be better controlled. We will write for only a short-term prescription and have her take the medications 3 hours apart to minimize her sedation. We will also have her stop any other sedating medication that she is taking. Counseled pt/family regarding: lab results, diagnosis, need for follow-up, rad results Medical Desision Making - Independent Historian Additional History obtained from: Family - Diagnostic Testing Diagnostic test were ordered, analyzed, and reviewed by me: Yes Radiological Interpretation: Reviewed by me, Teleradiologist Report - Risk of complications The pt has a mod risk of morbidity or mortality based on: Need for prescription drug management - Departure Departure Disposition: Home Clinical Impression: Acute exacerbation of chronic low back pain Condition: Stable Critical Care Time: No Referrals: BIJU GARCIA MD [Primary Care Provider] - Follow up/PCP as directed Instructions: Low Back Pain ED, Low back pain - Discharge instructions Additional Instructions: Continue your Celebrex. Stop any other sedating medication. Make certain that you do not take your Dilaudid and orphenadrine within 3 hours of each other. Keep your urology and back specialist appointments that were arranged for you. Dr. Sb Beltran from the [facility] and Dr. Pandya's office (urology) will be contacting you for appointments. Prescriptions: Hydromorphone HCl 2 mg PO Q8H PRN #8 tablet MDD 3 PRN Reason: Moderate To Severe Pain Orphenadrine Citrate 100 mg [Norflex 100 MG Tablet] 100 mg PO BID #10 tab
[2023-12-07 08:30] VITALS: TEMP 96.7
[2023-12-07 08:37] LABS: Appearance Clear (Clear); Bacteria None Seen /HPF (None Seen); Bilirubin Negative (Negative); Blood Negative (Negative); Epithelial Cells None Seen /HPF (None Seen); Glucose, Urine Negative (Negative); Hyaline Casts NONE SEEN /LPF (0-2); Ketones Negative (Negative); Leukocyte Esterase Negative (Negative); Nitrite Negative (Negative); Ph 5.5 (4.6-8.0); Protein,Urine Dip Negative (Negative); Specific Gravity >=1.030 (1.005-1.030); WBC 0-2 /HPF (0-5)
[2023-12-07] MEDS ORDERED: Hydromorphone 1 mg/ml Injection ONE (08:43)
[2023-12-07] MEDS ORDERED: Zofran 4 MG/2 ML VIAL ONE (08:43)
[2023-12-07] MEDS ORDERED: Norflex 60 MG/2 ML ONE (08:43)
[2023-12-07] MEDS ORDERED: solu-MEDROL ONE (08:43)
[2023-12-07] MEDS ORDERED: Sterile H2O 10 ml IJ ONE (08:43)
[2023-12-07] MEDS: Zofran 4 MG/2 ML VIAL IV ONE (08:45)
[2023-12-07 08:46] LABS: ADD URINE CULTURE? NO (NO)
[2023-12-07] MEDS: Norflex 60 MG/2 ML IV ONE (08:46)
[2023-12-07] MEDS: solu-MEDROL 125 MG, Sterile H2O 10 ml 2 ML IV ONE (08:48)
[2023-12-07] MEDS: Hydromorphone 1 mg/ml Injection IV ONE (08:50)
[2023-12-07 09:09] LABS: Absolute Neutrophil Ct (ANC) 4.61 x10^3/uL (1.56-6.13); BASOPHIL % 0.1 % (0.1-1.2); Basophil (Absolute #) 0.01 x10^3/uL (0.01-0.08); Eosinophil % 0.6 % (0.7-5.8); Eosinophil (Absolute #) 0.04 x10^3/uL (0.04-0.36); Hematocrit 45.8 % (34.1-44.9); Hemoglobin 15.1 g/dL (11.2-15.7); IMMATURE GRAN # 0.11 x10^3u/L (0.001-0.031); IMMATURE GRAN % 1.5 % (0.001-0.429); Lymphocyte (Absolute #) 1.82 x10^3/uL (1.18-3.74); Lymphocytes % 25.1 % (19.3-51.7); Mean Cell Volume 85.1 fL (79.4-94.8); Mean Corpuscular Hemoglobin 28.1 pg (25.6-32.2); Mean Platelet Volume 9.8 fL (9.4-12.3); Monocyte (Absolute #) 0.65 x10^3/uL (0.24-0.86); Neutrophil % 63.7 % (34.0-71.1); Platelet Count 372 x10^3/uL (182-369); Red Blood Count 5.38 x10^6/uL (3.93-5.22); Red Cell Distribution Width 12.9 % (11.7-14.4); White Blood Count 7.2 x10^3/uL (3.98-10.04)
--- NOTE | 2023-12-07 09:28 | XRAY ---
Indication: Urinary retention. Multiple contiguous axial images obtained through the abdomen and pelvis without contrast. Comparison: None Lung bases demonstrates minimal bibasilar subsegmental atelectasis/scarring and tiny left lower lobe calcified granuloma. No infiltrate or effusion. Heart not enlarged. Small hiatal hernia. Noncontrasted stomach and bowel loops appear nonobstructed. Moderate diffuse scattered colonic fecal debris throughout including rectum. Right mid kidney demonstrates 1.2 cm cortical cyst. Near empty urinary bladder with Mcmillan balloon catheter in situ. A few tiny splenic calcified granulomas. No free fluid/air. Remaining liver, gallbladder, pancreas, spleen, adrenal glands, kidneys, ureters, and uterus are unremarkable for noncontrast exam. Mild scattered aortoiliac calcifications without AAA. Osseous structures intact with osteopenia, mild levorotoscoliosis centered at L3, mild/moderate multilevel thoracolumbar degenerative spondylosis, minimal grade 1 anterolisthesis L4 on L5 on S1 with spinous process fixation hardware, and mild degenerative changes both hips. Impression: Hiatal hernia, diffuse fecal stasis, right renal cyst, Mcmillan balloon catheter in situ, arteriosclerotic disease, chronic bony findings, and old granulomatous disease. No acute findings on this noncontrast exam.
[2023-12-07 09:29] LABS: ALBUMIN 3.5 g/dL (3.5-5.0); ANION GAP 7.4 MEQ/L (5-15); BILIRUBIN,TOTAL 0.4 mg/dL (0.2-1.3); Calcium 9.1 mg/dL (8.4-10.2); Creatinine 1 0.93 mg/dL (0.52-1.04); EST GLOMERULAR FILTRATION RATE 64.1 ML/MIN; Potassium 3.5 mmol/L (3.5-5.1); Total Protein 6.1 g/dL (6.3-8.2)
[2023-12-07 09:53] VITALS: PULSE 60
[2023-12-07 11:03] VITALS: BP 117/79; RESP 11; O2SAT 98
== END 2023-12-07 11:14 | disposition home or self-care (01) ==
LOC: ED 08:01
DX: G89.29 Other chronic pain (principal); M54.50 Low back pain, unspecified; R10.2 Pelvic and perineal pain; I10 Essential (primary) hypertension; Z79.891 Long term (current) use of opiate analgesic; Z79.899 Other long term (current) drug therapy; Z59.82 Transportation insecurity
CPT/HCPCS: 36000; 36415; 51702; 74176; 80053; 81001; 82150; 83690; 85025; 96374; 96375; 99284; J1170; J2360; J2405; J2919

== ENCOUNTER 2024-01-31 12:59 | Day surgery (SDC) | payer MEDICARE, OTHER ==
[2024-01-31] MEDS ORDERED: Depo-Medrol 40 MG/ML IM ONE (13:00)
[2024-01-31] MEDS ORDERED: BUPIVACAINE 0.5% VIAL IJ ONE (13:00)
[2024-01-31] MEDS ORDERED: Lactated Ringers 1,000 ML IV ONE (15:21)
[2024-01-31] MEDS ORDERED: DIPRIVAN 200 MG/20 ML IV ONE (15:30)
--- NOTE | 2024-01-31 16:57 | XRAY ---
Indication: Left ischio bursa injection. Intraoperative fluoroscopy provided for 9 seconds. Single digital spot image submitted for interpretation demonstrates posterior needle tip projecting over left ischial tuberosity. Small amount of contrast injected for needle tip placement. Correlate with intraoperative findings/report.
--- NOTE | 2024-01-31 17:06 | XRAY ---
9 seconds of fluoroscopy were used in surgery for a left ischial bursa injection.
== END 2024-01-31 16:10 | disposition home or self-care (01) ==
LOC: SDC-PAIN 12:59
PROVIDERS: ATTEND Psychiatry & Neurology Pain Medicine
DX: M70.62 Trochanteric bursitis, left hip (principal)
CPT/HCPCS: 20610; 72170; 77002; J2704; Q9966

== ENCOUNTER 2024-04-23 08:29 | Day surgery (SDC) | payer MEDICARE, OTHER ==
[2024-04-23] MEDS ORDERED: BETADINE 5% OPHTHALMIC 30 ML OP ONE (08:30)
[2024-04-23] MEDS ORDERED: TRIAMCINOLONE 15 MG/ML INJ INTRAOP ONE (08:30)
[2024-04-23] MEDS ORDERED: VIGAMOX/BSS 0.15% SYR IO ONE (08:30)
[2024-04-23] MEDS ORDERED: Sodium Chloride 0.9% 10 ML FLUSH Syringe IJ ONE (08:30)
[2024-04-23] MEDS: TETRACAINE 0.5% STERI-UNIT SOL OP ONE ×2 (09:00→09:30)
[2024-04-23] MEDS: Ak-Dilate OPHTHALMIC*** 1.065 ML, Cyclogyl 1% OPHTH SOL 1.065 ML, GATIFLOXACIN 0.5% OPH... OP ONE (09:01)
[2024-04-23] MEDS ORDERED: Zofran 4 MG/2 ML VIAL IV PRN (10:30)
[2024-04-23] MEDS ORDERED: Epinephrine Preservative Free 1 MG/ML IJ ONE (10:30)
[2024-04-23] MEDS ORDERED: DIPRIVAN 200 MG/20 ML IV ONE (11:00)
[2024-04-23 11:21] VITALS: RESP 16
[2024-04-23 11:25] VITALS: TEMP 97.1; O2SAT 97
[2024-04-23] MEDS: ACETAZOLAMIDE 250 MG TABLET PO ONE (11:27)
[2024-04-23 11:37] VITALS: BP 115/66; PULSE 78
== END 2024-04-23 11:48 | disposition home or self-care (01) ==
LOC: SDC 08:29
PROVIDERS: ATTEND Ophthalmology
DX: H25.812 Combined forms of age-related cataract, left eye (principal); Z79.899 Other long term (current) drug therapy
CPT/HCPCS: 82947; C1780; J0171; J2704; A9270-GY

== ENCOUNTER 2024-05-28 06:14 | Day surgery (SDC) | payer MEDICARE, OTHER ==
[2024-05-28] MEDS ORDERED: VIGAMOX/BSS 0.15% SYR IO ONE (06:30)
[2024-05-28] MEDS ORDERED: BETADINE 5% OPHTHALMIC 30 ML OP ONE (06:30)
[2024-05-28] MEDS ORDERED: TRIAMCINOLONE 15 MG/ML INJ INTRAOP ONE (06:30)
[2024-05-28] MEDS ORDERED: Sodium Chloride 0.9% 10 ML FLUSH Syringe IJ ONE (06:30)
[2024-05-28] MEDS: TETRACAINE 0.5% STERI-UNIT SOL OP ONE ×2 (07:12→07:36)
[2024-05-28] MEDS: Ak-Dilate OPHTHALMIC*** 1.065 ML, Cyclogyl 1% OPHTH SOL 1.065 ML, GATIFLOXACIN 0.5% OPH... OP ONE (07:12)
[2024-05-28] MEDS ORDERED: Zofran 4 MG/2 ML VIAL IV PRN (08:30)
[2024-05-28] MEDS ORDERED: Epinephrine Preservative Free 1 MG/ML IJ ONE (08:30)
[2024-05-28] MEDS ORDERED: DEXMEDETOMIDINE 80 MCG/20ML-NS IV ONE (08:30)
[2024-05-28] MEDS ORDERED: propofoL IV ONE (09:50)
[2024-05-28 10:11] VITALS: RESP 16; TEMP 97.2
[2024-05-28] MEDS: ACETAZOLAMIDE 250 MG TABLET PO ONE (10:17)
[2024-05-28 10:27] VITALS: BP 107/77; PULSE 75; O2SAT 99
== END 2024-05-28 10:38 | disposition home or self-care (01) ==
LOC: SDC 06:14
PROVIDERS: ATTEND Ophthalmology
DX: H25.811 Combined forms of age-related cataract, right eye (principal); I10 Essential (primary) hypertension; Z79.899 Other long term (current) drug therapy
CPT/HCPCS: 82947; C1780; J0171; J2704; A9270-GY